=== PATIENT | female | born 1940 | race Caucasian/White ===

== ENCOUNTER 2021-01-25 15:08 | Observation (INO) ==
[2021-01-25] MEDS ORDERED: GI Cocktail 40 ML EACH PO ONE (15:41)
[2021-01-25 16:16] LABS: Basophils # 0.1 K/mcL (0.0-0.2); Basophils % 0.7 %; Eosinophils # 0.3 K/mcL (0.0-0.6); Hematocrit 35.4 % (35.3-44.9); Hemoglobin 11.6 g/dL (11.5-15.4); Immature Granulocytes % 0.3 % (0-4); Lymphocytes # 2.4 K/mcL (0.6-4.6); Mean Corpuscular HGB Conc 32.8 g/dL (31.6-35.5); Mean Corpuscular Hemoglobin 31.7 pg (28.0-33.3); Mean Corpuscular Volume 96.7 fL (83.0-100.0); Mean Platelet Volume 9.6 fL (9.4-12.4); Monocytes # 0.5 K/mcL (0.0-1.3); Monocytes % 7.5 %; Neutrophils # 3.9 K/mcL (1.6-8.9); Platelet Count 295 K/mcL (140-400); Red Blood Count 3.66 M/mcL (3.82-4.97); Red Cell Distribution Width 14.5 % (11.5-14.5); Segmented Neutrophils % 54.5 %; White Blood Count 7.2 K/mcL (4.3-11.1)
[2021-01-25 16:34] LABS: BUN/Creatinine Ratio 29 (6-26); Blood Urea Nitrogen 50 mg/dL (8-23); Carbon Dioxide 30 mEq/L (23-29); Chloride 97 mEq/L (98-107); Glucose 130 mg/dL (70-105); Osmolality,Calculated 303 (280-300); Potassium 4.1 mEq/L (3.5-5.1); Sodium 139 mEq/L (136-145); eGFR For African Americans 35 (> 60); eGFR For Non-African Americans 29 (> 60)
[2021-01-25 16:36] LABS: Troponin I < 0.03 ng/mL (< 0.04)
[2021-01-25] MEDS ORDERED: Naloxone 0.4 MG/ML INJ IVP PRN (17:36)
[2021-01-25] MEDS ORDERED: Acetaminophen 325 MG TABLET PO PRN (17:36)
[2021-01-25] MEDS ORDERED: Ondansetron 4 MG/2 ML VIAL IVP PRN (17:36)
[2021-01-25] MEDS ORDERED: *HR* Dextrose 50 % in Water (Vial) 50 ML VIAL IVP PRN (17:40)
[2021-01-25] MEDS ORDERED: Dextrose Gel 15 GM/37.5 ML TUBE PO PRN ×2 (17:40)
[2021-01-25] MEDS ORDERED: D5% in Water 1,000 ML IVC PRN (17:40)
[2021-01-25] MEDS ORDERED: hydrALAZINE 10 MG TABLET PO PRN (20:19)
[2021-01-25] MEDS ORDERED: Fluticasone Propionate Nasal 50 MCG/SPRAY BOTTLE NS PRN (20:20)
[2021-01-25] MEDS ORDERED: Insulin LISPRO 300 UNITS/3 ML VIAL SUBQ SCH (21:00)
[2021-01-25] MEDS ORDERED: clonazePAM 0.5 MG TABLET PO SCH (21:00)
[2021-01-25] MEDS ORDERED: Gabapentin 400 MG CAPSULE PO SCH (21:00)
[2021-01-25] MEDS ORDERED: Perflutren Lipid Microsphere 1.3 ML in 0.9 % Sodium Chloride 8.7 ML IVP PRN (21:19)
[2021-01-25] MEDS: FISH OIL 1200MG PO SCH (21:23)
[2021-01-25] MEDS: *HR* Heparin 5,000 UNIT/ML VIAL SQ SCH (21:25)
[2021-01-25] MEDS: 0.9 % Sodium Chloride 1,000 ML IVC SCH (21:27)
[2021-01-26 04:47] LABS: Hematocrit 30.8 % (35.3-44.9); Mean Corpuscular HGB Conc 32.1 g/dL (31.6-35.5); Mean Corpuscular Volume 96.6 fL (83.0-100.0); Mean Platelet Volume 9.9 fL (9.4-12.4); Platelet Count 237 K/mcL (140-400); Red Blood Count 3.19 M/mcL (3.82-4.97); Red Cell Distribution Width 14.2 % (11.5-14.5); White Blood Count 7.2 K/mcL (4.3-11.1)
[2021-01-26 04:51] LABS: Hemoglobin 9.9 g/dL (11.5-15.4)
[2021-01-26 05:01] LABS: BUN/Creatinine Ratio 28 (6-26); Blood Urea Nitrogen 48 mg/dL (8-23); Calcium 10.8 mg/dL (8.6-10.3); Carbon Dioxide 31 mEq/L (23-29); Chloride 101 mEq/L (98-107); Glucose 94 mg/dL (70-105); Osmolality,Calculated 304 (280-300); Potassium 3.9 mEq/L (3.5-5.1); Sodium 141 mEq/L (136-145); Troponin I < 0.03 ng/mL (< 0.04); eGFR For African Americans 35 (> 60); eGFR For Non-African Americans 29 (> 60)
[2021-01-26] MEDS: 0.9 % Sodium Chloride 1,000 ML IVC SCH (06:03)
[2021-01-26] MEDS: *HR* Heparin 5,000 UNIT/ML VIAL SQ SCH (06:04)
[2021-01-26 08:01] LABS: Estimated Average Glucose 160 mg/dl; Hemoglobin A1C 7.2 %
[2021-01-26] MEDS ORDERED: Fluticasone Propionate Nasal 50 MCG/SPRAY BOTTLE NS SCH (09:00)
[2021-01-26] MEDS ORDERED: lisinopriL 20 MG TABLET PO SCH (09:00)
[2021-01-26] MEDS ORDERED: allopurinoL 300 MG TABLET PO SCH (09:00)
[2021-01-26] MEDS ORDERED: MYRBETRIQ 50 MG PO SCH (09:00)
[2021-01-26] MEDS ORDERED: amLODIPine 5 MG TABLET PO SCH (09:00)
[2021-01-26] MEDS ORDERED: Multivit/Ca/Min/Fe/FA 1 TAB TABLET PO SCH (09:00)
[2021-01-26] MEDS ORDERED: calcitrioL 0.25 MCG CAPSULE PO SCH (09:00)
[2021-01-26 11:13] VITALS: BP 113/67
[2021-01-26] MEDS: Insulin LISPRO 300 UNITS/3 ML VIAL SUBQ SCH ×2 (11:20→11:26)
[2021-01-26] MEDS: FISH OIL 1200MG PO SCH (11:26)
[2021-01-26 12:01] LABS: Bilirubin,Urine Negative (Negative); Blood,Urine Negative (Negative); Clarity,Urine Clear (Clear); Color,Urine Yellow (Yellow); Glucose,Urine (UA) Normal (Normal); Ketones,Urine Negative (Negative); Leukocyte Esterase,Urine Small (Negative); Nitrite,Urine Negative (Negative); PH,Urine 6.5 pH Units (5.0-8.0); Protein,Urine Negative (Neg-Trace); Specific Gravity,Urine 1.015 (1.010-1.025); Urobilinogen,Urine Normal (Normal)
[2021-01-26 12:02] LABS: Bacteria,Urine Few per hpf (None-Few); RBC,Urine 0-3 per hpf (0-3); Squamous Epithelial Cell,Urine Few per hpf (None-Few)
[2021-01-26 14:14] LABS: Calcium 10.4 mg/dL (8.6-10.3); Potassium 4.1 mEq/L (3.5-5.1)
== END 2021-01-26 15:30 | disposition home or self-care (01) ==
LOC: EMEROOGRE 15:08 → INPGRE 15:08
PROVIDERS: ADMIT Family Medicine; ATTEND Family Medicine